=== PATIENT | female | born 1995 | race Caucasian/White ===

== ENCOUNTER 2024-04-07 09:33 | Outpatient (CLI) | payer OTHER ==
[2024-04-07] MEDS: LACTATED RINGERS 1,000 ML IV SCH (10:12)
[2024-04-07 12:10] VITALS: BP 123/69; PULSE 114; RESP 18; TEMP 98
--- NOTE | 2024-04-08 12:36 | P.MSEPDOC ---
Presenting Problems - Arrival Data Date of Arrival on Unit: 04/07/24 Time of Arrival on Unit: 09:33 Mode of Transport: Ambulatory - Complaint OB-Reason for Admission/Chief Complaint: Acute Nausea/Vomiting Medical History - Information : 1 Para: 0 Term: 0 : 0 Abortions: Spontaneous or Elective: 0 Number of Living Children: 0 - Gestational Age Gestational Age by BLU (wks/days): 32 Weeks and 5 Days - History Complications: GDM Review of Systems - Review of Systems Constitutional: No problems Breast: No problems ENT: No problems Cardiovascular: No problems Respiratory: No problems Gastrointestinal: No problems Genitourinary: No problems Musculoskeletal: No problems Neurological: No problems Skin: No problems Vital Signs - Temperature Temperature: 98.0 F Temperature Source: Axillary - Pulse Right Pulse Oximetery Pulse Rate: 114 Pulse Assessment Method: Pulse Oximetry - Respirations Respiratory Rate: 18 Oxygen Delivery Method: Room Air O2 Sat by Pulse Oximetry: 96 - Blood Pressure Right Arm Blood Pressure: 123/69 Blood Pressure Mean: 87 Blood Pressure Source: Automatic Cuff Medical Screen Scoring - Uterine Contractions Frequency From (mins): 2 Frequency To (mins): 2 Duration From (seconds): 50 Duration To (seconds): 60 Intensity: Mild Resting: Soft to palpation - Assessment - Baby A Baseline FHR: 145 Heart Rate - NICHD Category: Category I (Normal) NST: Reactive Physician Notification - Physician Notified Physician Notified Date: 04/07/24 Physician Notified Time: 10:00 Physician: Denise Stovall New Order Received: Yes - Notification Comment Comment: patient treated with IV fluids and cervical exam and ffn done. Maternal Triage Index - Maternal Triage Index Presenting for scheduled procedure w/no complaint: No - Stat/Priority 1 Stat Priority 1: No - Urgent/Priority 2 Urgent Priority 2: Yes Provider Notified: Denise Stovall Provider Notified Time: 10:00 Criteria Met for Priority 2: Pt here for nausea/vomiting but also has detectable contraction on TOCO ever 2 minutes that patient is not feeling - Prompt/Priority 3 Prompt Priority 3: No - Non-Urgent/Priority 4 Non-Urgent Priority 4: No Disposition - Disposition OB Disposition: Discharge to home Discharge Date: 04/07/24 Discharge Time: 11:50 I agree with the RN Medical Screening Exam: Yes Case reviewed; plan agreed upon as documented in EMR&OBIX.: Yes Diagnosis: VOMITING OF , UNSPECIFIED
== END 2024-04-07 11:50 | disposition home or self-care (01) ==
LOC: FBPOP 09:33
PROVIDERS: ATTEND Obstetrics & Gynecology
DX: O21.9 Vomiting of pregnancy, unspecified (principal); Z3A.32 32 weeks gestation of pregnancy
CPT/HCPCS: 59025; 82731; 96360; 99214